=== PATIENT | female | born 1960 | race African-American/Black ===

== ENCOUNTER 2016-12-14 19:59 | Emergency (ER) | payer OTHER ==
[~2016-12-14 19:59] MED LIST: AMOXICILLIN PO; FLEXERIL PO; FLEXERIL10 MG PO; FLONASE 0.05% N16 G1; HCTZ PO; HYDROCHLOROTHIA25 MG PO; K-DUR20 ME1 PO; KEFLEX500 M1 PO; LORTAB 5/500 TA1 TA1 PO; MEDROL DOSEPAK4 MG DOB; NAPROSYN500 MG PO; NORVASC PO; NORVASC10 MG PO; PEN-VEE K PO; PROMETRIUM PO; TRAMADOL HCL50 M1 PO; ULTRAM PO; VICODIN 5/1 TAB 5/50 PO; VICODIN 5/500 T1 TAB PO; VOLTAREN75 MG PO
== END 2016-12-14 21:08 | disposition home or self-care (01) ==
LOC: CED 19:59 → CFTX 19:59
DX: S61.451A Open bite of right hand, initial encounter (principal); I10 Essential (primary) hypertension; W54.0XXA Bitten by dog, initial encounter; Y92.009 Unspecified place in unspecified non-institutional (private) residence as the place of occurrence of the external cause
CPT/HCPCS: 99283